=== PATIENT | male | born 1990 | race Caucasian/White ===

== ENCOUNTER 2019-06-17 20:57 | Emergency (ER) | payer OTHER ==
[~2019-06-17] VITALS: Ht 190.5 cm; Wt 106.9 kg
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
[2019-06-17] MEDS ORDERED: SILVER SULFADIAZINE 50 GM CREAM ONE (21:15)
[2019-06-17] MEDS ORDERED: TETANUS,DIPTH,PERTUSS P/F (BOOSTRIX) 0.5 ML VIAL IM ONE (21:15)
[2019-06-17] MEDS ORDERED: IBUPROFEN 800 MG (MOTRIN) TAB PO ONE (21:15)
[2019-06-17 21:36] VITALS: BP 171/98
[2019-06-18] MEDS ORDERED: SILVER SULFADIAZINE 50 GM CREAM TOP ONE (09:00)
[2019-06-18] MEDS ORDERED: SILVER SULFADIAZINE 400 GM CREAM TOP SCH (09:00)
== END 2019-06-17 21:36 | disposition home or self-care (01) ==
LOC: ER FS 21:00
DX: T22.011A Burn of unspecified degree of right forearm, initial encounter (principal); T23.071A Burn of unspecified degree of right wrist, initial encounter; T31.0 Burns involving less than 10% of body surface; X12.XXXA Contact with other hot fluids, initial encounter
CPT/HCPCS: 90715; 99282